=== PATIENT | male | born 2000 | race Caucasian/White ===

== ENCOUNTER 2025-02-08 23:20 | Emergency (ER) | payer OTHER, SELFPAY ==
[2025-02-08 23:20] VITALS: BMI 23.2
[2025-02-08 23:25] VITALS: BP 112/69
[2025-02-08 23:47] LABS: Hematocrit 42.7 % (39.0-52.0); Hemoglobin 14.9 g/dL (13.0-18.0); Mean Corp Hgb Conc. 34.9 g/dL (33.0-37.0); Mean Corpuscular Volume 87.5 fL (80.0-94.0); Nucleated Red Blood Cells % 0 % (-); Platelet Count 186 10^3/uL (130-400); Red Cell Dist. Width 11.8 % (11.5-14.5)
[2025-02-09] VITALS: BP 105/60
[2025-02-09 00:03] LABS: ALT (SGPT) 17 U/L (0-50); AST (SGOT) 17 U/L (17-59); Albumin 4.6 g/dl (3.5-5.0); Alkaline Phosphatase 47 U/L (38-126); Blood Urea Nitrogen 27 mg/dl (9-20); Calcium 9.4 mg/dl (8.4-10.2); Carbon Dioxide 30 mmol/L (22-30); Chloride 99 mmol/L (98-107); Glucose 110 mg/dl (70-99); Lipase 110 U/L (23-300); Potassium 3.9 mmol/L (3.5-5.1); Sodium 133 mmol/L (135-145); Total Protein 7.3 g/dl (6.3-8.2); eGFR > 60.00
[2025-02-09 01:11] LABS: Urine Character Clear (Clear)
--- NOTE | 2025-02-09 01:17 | ED.GENMED ---
History of Present Illness
General
Chief Complaint: Abdominal Pain
Source: patient
Exam Limitations: none
Time Seen by Provider: 02/09/25 00:50
History of Present Illness
History of Present Illness:
See MDM
Past History
Past History
ED Past Medical History: None
ED Past Surgical History: None
Social History
Tobacco: Non-smoker
Alcohol: None
Phy Exam
Physical Exam
Physical Exam:
See MDM
Course
Orders/Labs/Results
Orders:
Orders
02/08/25 01:00
Urinalysis Reflex To Culture Urgent
Date Specimen was Collected: 02/08/25
Time Specimen was Collected: 23:34
02/08/25 23:34
IV Insert/Care/Rem.- Treatment PRN
Straight cath- Treatment ONCE
02/08/25 23:39
Complete Blood Count/With Diff Urgent
Comprehensive Metabolic Panel Urgent
Lipase Urgent
02/09/25 01:00
Urine Microscopic Reflex Cult Urgent
02/09/25 01:16
Gabapentin [Neurontin] 100 mg PO NOW STA
Oxycodone [Roxicodone] 5 mg PO NOW STA
Abnormal Lab Results
02/08/25 02/09/25
23:39 01:00
Sodium 133 L mmol/L
(135-145)
BUN 27 H mg/dl
(9-20)
Glucose 110 H mg/dl
(70-99)
Urine Albumin (Reflex) 1+ A
(Neg - Trace)
02/08/25 23:39
02/08/25 23:39
Vital Signs
Initial and Last Documented VS:
Initial Vital Signs
Temp Pulse Resp BP Pulse Ox
97.6 F 80 20 112/69 99
02/08/25 23:25 02/08/25 23:25 02/08/25 23:25 02/08/25 23:25 02/08/25 23:25
Last Documented Vital Signs
Temp Pulse Resp BP Pulse Ox
98.2 F 68 16 105/60 97
02/09/25 00:00 02/09/25 00:00 02/09/25 00:00 02/09/25 00:00 02/09/25 01:20
MDM/Problems Addressed
Differential Diagnosis Includes:
Note:
CHIEF COMPLAINT(S)
Pelvic pain, right-sided numbness of the penis, and erectile dysfunction.
HISTORY OF PRESENT ILLNESS
The patient is a 25-year-old male with a complaint of worsening pelvic pain over several weeks. Initially, the pain started in the sternum, where an ultrasound resulted in negative findings. The pain has since progressed to involve the pelvis and
bladder. The patient reports inability to attain an erection due to pain, right penile numbness, and the penis appearing curved. However, on my exam, there is no curvature of the penis. The patient describes the nature of the pain as burning and
states that it worsens when attempting to achieve an erection. There is a history of hip thrust exercises at the gym with heavy weight, which coincides with the onset of symptoms. Recent imaging, including an ultrasound and CT scan performed at [facility], showed negative results for any masses or hernias. The patient is currently on antibiotics for a diagnosed bacterial infection, although he reports uncertainty regarding its relevance to the penile symptoms. Pain also occurs during urination,
causing difficulty initiating urination. The patient has consulted a urologist and has a follow-up appointment for a vascular ultrasound on Tuesday. There is reported numbness primarily on the right side, with some sensitivity changes and occasional
shooting pain to the left side.
SOCIAL DETERMINANTS AFFECTING HEALTH
The patient reports regular exercise, including performing hip thrusts at the gym, which he does not usually perform with such heavy weights.
PHYSICAL EXAM
General: Alert, no acute distress.
Skin: Warm, dry.
Head: Normocephalic, atraumatic
Neck: Appears supple, trachea midline.
Eyes, Ears, Nose, Mouth, and Throat: Moist mucous membranes
Cardiovascular: No signs of cyanosis
Respiratory: Respirations are non-labored.
Abdomen: Non-distended. No tenderness elicited
: Mild sensory deficit to right side of penis. No inguinal hernia palpated. No mass or rash noted
Musculoskeletal: No deformities
Neurological: No focal neurological deficit observed.
Psychiatric: Cooperative, appropriate mood and affect.
PLAN
The patient will continue to be evaluated by his urologist with a vascular ultrasound scheduled for Tuesday to further assess penile blood flow issues. Pain management will include starting the patient on gabapentin for potential nerve pain, with a
short course of oxycodone for more immediate pain relief. Monitoring for signs of infection and potential development of shingles is ongoing. Potential peripheral nerve damage caused by gym activity will be considered in the diagnosis. Education
regarding driving precautions with new medications was provided.
DIFFERENTIAL DIAGNOSIS
- Neuralgia
- Peripheral neuropathy
- Nerve compression or damage
- Peyronie�s disease
- Urethritis
- Epididymitis
- Prostatitis
- Urinary tract infection
- Spinal nerve impingement
- Pelvic muscle strain or injury
SUMMARY OF ENCOUNTER
The patient presented to the emergency department with complaints of pelvic pain, numbness, and erectile dysfunction. Given the recent negative imaging results, the physical exam focused on the evaluation of potential nerve-related issues. The
patients symptoms are suspected to be due to peripheral nerve injury possibly related to intense physical activity. A plan was implemented for symptomatic management with pain medications and further evaluation by a specialist with a vascular
ultrasound.
EMERGENCY TREATMENTS ADMINISTERED
- Gabapentin
- Oxycodone
FOLLOW-UP INSTRUCTIONS
The patient is advised to keep the follow-up appointment with the urologist for a vascular ultrasound. The continuity of care with specialists is imperative for further diagnosis and management.
MEDICATION RECONCILIATION
- Gabapentin 100 mg twice daily, starting dose.
- Oxycodone, short course for pain relief.
MEDICAL DECISION MAKING
- Complexity of Data Reviewed: Chronic conditions affecting care include potential peripheral nerve injury from exercise. The Differential Diagnosis includes, in no particular order, and is not limited to the conditions listed above.
- Data:
Category 1: Reviewed results of recent ultrasound and CT scan from external records.
Category 2: Assessment included an independent historian input regarding gym activity.
- Risk: Consideration of nerve compression or damage with proposed outpatient management and follow-up. Prescription medication was prescribed.
DIAGNOSIS
- Peripheral neuropathy (ICD-10: G62.9)
- Erectile dysfunction (ICD-10: N52.9)
- Pelvic pain (ICD-10: R10.2)
SUMMARY OF ENCOUNTER
The patient, a 25-year-old male, was seen in the emergency department for complaints of penile pain, which may be related to a nerve injury potentially caused by recent exercise. He is experiencing burning pelvic pain, right-sided numbness of the
penis, and erectile dysfunction. Previous analysis was negative for infection, and the patient is currently on antibiotics. No rash was present to suggest shingles. The pain onset coincides with recent heavy gym activity.
PLAN
The patient will continue to follow up with the urologist as scheduled. Pain management will be initiated with a short course of gabapentin.
PATIENT EDUCATION AND COUNSELING
The patient was counseled on the likely nerve injury related to exercise and was advised of return precautions. He was informed about the importance of continuing follow up with the urologist.
FOLLOW-UP INSTRUCTIONS
The patient should maintain his follow-up appointment with the urologist.
MEDICATION RECONCILIATION
- Start gabapentin for pain management.
MEDICAL DECISION MAKING
-Complexity of Data Reviewed: Chronic conditions affecting care include potential peripheral nerve injury from exercise. The Differential Diagnosis includes neuralgia, peripheral neuropathy, nerve compression or damage, Peyronies disease,
urethritis, epididymitis, prostatitis, urinary tract infection, spinal nerve impingement, and pelvic muscle strain or injury.
-Data:
Category 1: Analysis was negative for infection, and current imaging results do not show any masses or hernia.
Category 2: Independent historian input from the patients history of gym activity helps inform the potential diagnosis of a nerve-related injury.
-Risk: Prescription medication was prescribed with gabapentin.
DIAGNOSIS
- Peripheral neuropathy (ICD-10: G62.9)
- Erectile dysfunction (ICD-10: N52.9)
- Pelvic pain (ICD-10: R10.2)
*Pulse Oximetry
SaO2: 97
Oxygen Mode of Delivery: Room air
Patient hypoxic: no
*Critical Care Note
Total Time (30-74mins, 75-104mins- exclusive of procedures): Not Applicable
ED Attending Note
-
Portions of this chart may have been created with voice recognition software.� Occasional wrong word or��sound alike� substitutions may have occurred due to the inherent limitations of voice recognition software.
Discharge Plan
Departure
Patient Disposition: Home (Routine Discharge)
Date of Disposition: 02/09/25
Time of Disposition: 02:14
Patient with high blood pressure during this ER visit?: No
Discharge Problem:
Nerve pain
Prescriptions:
New
oxycodone 5 mg tablet
5 mg PO Q8H PRN (Reason: Pain) Qty: 6 0RF
gabapentin 100 mg capsule
100 mg PO BID Qty: 14 0RF
Referrals:
Tony Beckham DO [Family Provider, Family Practice]
Maciel Ferrara MD [Active, Urology]
Activity Restrictions/Additional Instructions:
Please return for any worsening symptoms.
You may return at any time if you have further concerns.
Please follow up with your doctor at the first available appointment, preferably this week.
If the pain medicine helps, your primary care doctor may increase the dose and extend the prescription.
Please keep your urology follow-up.
Thank you for choosing [facility].
Interventions
Interventions:
*Risk Screen - Suicide Last Done: 02/08/25 23:25
*General Assessment Last Done: 02/08/25 23:25
*Neglect/Abuse Screening Last Done: 02/08/25 23:25
*ED- Fall Risk Assessment Last Done: 02/08/25 23:25
*ED COVID-19 Vaccine History Last Done: 02/08/25 23:25
*ED Influenza Vaccine History Last Done: 02/08/25 23:25
JJ-Bbpijd-Mopamopvfp Assessment Last Done: 02/09/25 00:27
Discharge Date and Time
Print Language: COMORAN
[2025-02-09 01:23] LABS: Urine Red Blood Cell 0-2 /HPF (0-2); Urine Squamous Cell 0-2 /LPF (Few); Urine White Cell 0-2 /HPF (0-5)
[2025-02-09] MEDS: ROXICODONE 5 MG PO (01:23)
[2025-02-09] MEDS: NEURONTIN 100 MG PO (01:53)
[2025-02-09 02:43] VITALS: BP 113/61
== END 2025-02-09 02:35 | disposition home or self-care (01) ==
LOC: EMR 23:20
PROVIDERS: EMERGENCY PHYSICIAN Student in an Organized Health Care Education/Training Program; FAMILY PHYSICIAN Family Medicine
DX: M79.2 Neuralgia and neuritis, unspecified (principal)
CPT/HCPCS: 99283; 80053; 81003; 81015; 83690; 85025